=== PATIENT | female | born 1975 | race Caucasian/White ===

== ENCOUNTER 2025-08-02 12:31 | Emergency (ER) | payer OTHER ==
[~2025-08-02] VITALS: Ht 177.8 cm; Wt 93.0 kg
[~2025-08-02 12:31] MED LIST: CATAFLAM50 MG PO; IBU-8800 MG PO; NKHM
[2025-08-02] MEDS ORDERED: Ondansetron Hydrochloride 4 MG/2 ML VIAL IV ONE (12:55)
[2025-08-02] MEDS ORDERED: diphenhydrAMINE hydrochloride 50 MG/ML VIAL IV ONE (12:55)
[2025-08-02] MEDS ORDERED: Metoclopramide Hydrochloride 10 MG/2 ML VIAL IV ONE (12:55)
[2025-08-02] MEDS ORDERED: SODIUM CHLORIDE 0.9% 500 ML IV ONE (12:55)
[2025-08-02 13:14] LABS: BASO # 0.0 10*3/uL (0.0-0.1); BASO % 0.3 % (0.0-1.0); EOS # 0.2 10*3/uL (0.0-0.4); EOS % 1.6 % (1.0-4.0); MEAN CELL VOLUME 87.5 fl (81.0-99.0); MEAN CORPUSCULAR HGB 28.6 pg (27.0-31.0); MEAN PLATELET VOLUME 9.5 fl (9.6-12.3); MONO # 1.0 10*3/uL (0.1-1.0); MONO % 7.0 % (3.0-9.0); NEUT # 9.0 10*3/uL (2.3-7.9); NEUT % 62.6 % (47.0-73.0); NUCLEATED RED BLOOD CELL 0.0 % (0.0-0.0); NUCLEATED RED BLOOD CELL 0.0 10*3/uL (0.0-0.0); PLATELET COUNT AUTOMATED 303 10*3/uL (130-400); RED CELL DISTRI WIDTH 15.2 % (0-14.5)
[2025-08-02 13:37] LABS: BUN 13 mg/dl (9-23); CPK 29 U/L (34-171); SGPT/ALT 17 U/L (5-49)
[2025-08-02] MEDS ORDERED: MG-AL HYDROXIDE/SIMETICONE 30 ML UDC PO STA (13:45)
[2025-08-02] MEDS ORDERED: CARAFATE1 G1 PO (13:47)
[2025-08-02] MEDS ORDERED: REGLAN10 M1 PO (13:47)
[2025-08-02] MEDS ORDERED: PROTONIX40 MG PO (13:47)
[2025-08-02] MEDS ORDERED: Ondansetron4 MG PO (13:47)
[2025-08-02] MEDS ORDERED: METHOCARBAMOL750 M1 PO (14:06)
== END 2025-08-02 13:50 | disposition home or self-care (01) ==
LOC: ED 12:31
PROVIDERS: Emergency Medicine
DX: K29.70 Gastritis, unspecified, without bleeding (principal); J45.909 Unspecified asthma, uncomplicated; F17.200 Nicotine dependence, unspecified, uncomplicated; Z88.1 Allergy status to other antibiotic agents

== ENCOUNTER 2025-10-30 23:10 | Emergency (ER) | payer BC ==
[~2025-10-30] VITALS: Ht 177.8 cm; Wt 93.0 kg
[~2025-10-30 23:10] MED LIST changes: +CARAFATE1 G1 PO; +METHOCARBAMOL750 M1 PO; +Ondansetron4 MG PO; +PROTONIX40 MG PO; +REGLAN10 M1 PO
[2025-10-31] MEDS ORDERED: MAGNESIUM CITRATE 296 ML BOT PO ONE (00:10)
[2025-10-31] MEDS ORDERED: MIRALAX POWDER17 G1 PO (00:11)
== END 2025-10-31 00:24 | disposition home or self-care (01) ==
LOC: ED 23:10
DX: K59.00 Constipation, unspecified (principal); J45.909 Unspecified asthma, uncomplicated; F17.210 Nicotine dependence, cigarettes, uncomplicated; Z88.1 Allergy status to other antibiotic agents